=== PATIENT | male | born 1965 | race African-American/Black ===

== ENCOUNTER 2016-07-31 12:39 | Emergency (ER) | payer OTHER ==
[~2016-07-31] VITALS: Ht 180.3 cm; Wt 86.4 kg
[2016-07-31 12:45] VITALS: TEMP 36.8; Ht 180.3 cm; Wt 86.4 kg
[2016-07-31 13:25] VITALS: O2SAT 99
[2016-07-31 13:33] LABS: BASO % 0.3 %; BASO ABS # 0.02 K/uL (0-0.2); COMPLETE YES; EOS % 0.6 %; HEMATOCRIT 42.5 % (42-52); LYMPH % 24.9 %; MEAN CELL VOLUME 80.6 fL (80-100); MEAN CORPUSCULAR HEMOGLOBIN 27.3 pg (25-34); MEAN CORPUSCULAR HGB CONC 33.9 g/dl (32-36); MEAN PLATELET VOLUME 12.1 fL (7.4-10.4); MONO % 7.3 %; NEUT % 66.9 %; PLATELET COUNT 175 K/uL (130-400); RED BLOOD COUNT 5.27 M/uL (4.7-6.1); WHITE BLOOD COUNT 6.42 K/uL (4.8-10.8)
[2016-07-31 13:40] LABS: BUN/CREATININE RATIO 10.5 (10-20); C-REACTIVE PROTEIN 1.04 mg/dl (0-0.29); CALCIUM 9.1 mg/dl (8.5-10.1); CREATININE 1.1 mg/dl (0.60-1.40); POTASSIUM 3.6 mmol/L (3.5-5.1)
[2016-07-31 13:41] LABS: PROTHROMBIN TIME (PATIENT) 10.3 SECONDS (9.0-12.0)
[2016-07-31 13:55] LABS: POINT OF CARE TROPONIN I 0.01 ng/ml (0-0.045)
[2016-07-31] MEDS ORDERED: OPTIRAY 320 IV PRN (14:00)
--- NOTE | 2016-07-31 15:01 | DIAGNOSTIC IMAGING REPORT ---
CT ANGIOGRAM OF THE CHEST CLINICAL HISTORY: Dyspnea. COMPARISON STUDY: No priors. TECHNIQUE: Following the IV administration of 93 cc of Optiray 320, CT angiogram of the chest was performed from the upper abdomen to the thoracic inlet utilizing the pulmonary embolus protocol. Images are reviewed in the axial, sagittal, and coronal planes. 3-D MIPS images are created and assessed. IV contrast was administered without complication. The examination is modestly degraded by motion artifact. CT DOSE: 515.28 mGycm FINDINGS: Thyroid: Imaged portions of the thyroid gland are normal in size and attenuation. Thoracic aorta: The thoracic aorta is normal in caliber and demonstrates standard 3-vessel arch anatomy. No dissection is seen. Pulmonary vasculature: The pulmonary trunk is normal in caliber. There are no filling defects identified in main, lobar, or segmental pulmonary branches to suggest pulmonary embolus. Heart: The heart is enlarged and there is trace pericardial effusion. Lungs and pleural spaces: There is dependent atelectasis. No airspace consolidation or pleural effusion is identified typical for pneumonia. Mild peribronchial thickening is noted. The trachea and central airways are clear. Mediastinum: There is no mediastinal lymphadenopathy. Selene: Clear. Axillae: There is no axillary lymphadenopathy. Upper abdomen: Fecal retention is noted in the partially imaged colon. A tiny hiatal hernia is identified. There is a calcified granuloma in the right lobe of liver. Skeletal structures: No lytic or blastic bony lesions are seen. IMPRESSION: 1. There is no evidence of pulmonary embolus in the main, lobar, or segmental pulmonary arteries. 2. There is no airspace consolidation or pleural effusion. Mild diffuse peribronchial thickening suggests reactive airway disease. Clinical correlation will be required. 3. Cardiomegaly. Electronically signed by: Huy Thrasher M.D. 07/31/2016 3:00 PM Dictated Date/Time: 07/31/2016 2:55 PM
[2016-07-31] MEDS ORDERED: ALBUT/IPRATROP 3MG/0.5MG NEB 3 ML VIAL INH STA (15:09)
[2016-07-31] MEDS ORDERED: AZIT250T PO (15:49)
[2016-07-31] MEDS ORDERED: AZITHROMYCIN 250 MG TAB PO ONE (16:00)
[2016-07-31] MEDS ORDERED: ALBUTEROL HFA 8 GM INHALER INH ONE (16:00)
[2016-07-31 16:12] VITALS: BP 117/76; PULSE 81; O2SAT 96
--- NOTE | 2016-07-31 16:15 | EMERGENCY ROOM VISIT NOTE ---
History Report prepared by Tia: Ally Montez Under the Supervision of: Dr. Francois Vila M.D. First contact with patient: 13:10 Chief Complaint: SHORTNESS OF BREATH Stated Complaint: SHORTNESS OF BREATH Nursing Triage Summary: Patient arrived via EMS from [facility]. Patient states started experiencing SOB and and states "it feels like someone is sitting on his chest". SOB and pain increases when lying flat. Patient c/o left back discomfort as well. States was told had pericardial fluid in 2012 and was given ibuprophen. Was supposed to f/ u with FMD, did not. States pain feels a lot like it did in 2012. Patient was given 4 ASA in ambulance. Patient on 2L O2 in ambulance. History of Present Illness The patient is a 50 year old male who presents to the Emergency Room via EMS from [facility] with complaints of persistent shortness of breath that began yesterday. He also complains of feeling chest discomfort that felt like something was sitting on his chest. Since his symptoms began, he feels like his symptoms have improved some. He does note worsening of his chest heaviness and shortness of breath when he lays flat. The patient has a history of pericarditis in 2012. His current symptoms feel similar to how he felt at that time. He did not have cold-like symptoms prior to his diagnosis in 2011. The patient did not need to have fluid drained. He was just placed on NSAIDs. He never followed up. Denies fever, cold-like symptoms, leg swelling, recent immobilization, or other complaints. He does not have a history of hypertension or diabetes. There is no family history of heart disease. He is not a smoker. He reports previous heavy use of cocaine but notes that he has not used in 16 years. Source of History: patient Onset: yesterday Position: other (global) Quality: other (shortness of breath) Timing: other (persistent) Modifying Factors (Worsening): other (laying flat) Associated Symptoms: + chest pain (heaviness - feels like something sitting on chest), No fevers Review of Systems See HPI for pertinent positives & negatives. A total of 10 systems reviewed and were otherwise negative. Past Medical & Surgical Medical Problems: (1) Pericarditis Family History No pertinent family history stated. Social History Smoking Status: Former Smoker Housing Status: other ([facility]) Current/Historical Medications Scheduled Azithromycin (Zithromax), 250 MG PO DAILY Allergies Coded Allergies: No Known Allergies (Unverified , 07/31/16) Physical Exam Vital Signs Date Time Temp Pulse Resp B/P Pulse Ox O2 Delivery O2 Flow Rate FiO2 07/31/16 14:59 71 21 123/73 96 Room Air 07/31/16 13:25 99 Room Air 07/31/16 13:09 76 07/31/16 12:45 36.8 80 30 114/75 100 Room Air 07/31/16 12:45 99 Room Air 07/31/16 12:45 100 Room Air Physical Exam Constitutional: Vital signs reviewed. Eyes: Pupils are equal round reactive to light. Conjunctiva are noninjected. ENT: Pharynx is clear without erythema or exudate. Mucous membranes are moist. Neck supple without meningeal signs. Respiratory: Tachypneic. No rales. Clear to auscultation bilaterally. Breath sounds are equal bilaterally. Cardiovascular: Regular rate and rhythm. No rubs or gallops. GI: Soft, nondistended and nontender. Bowel sounds are present. Musculoskeletal: No peripheral edema. No lower extremity tenderness. Integumentary: No cyanosis. Neurological: The patient is awake and alert. No focal deficits. Psychiatric: Normal affect. Medical Decision & Procedures ER Provider Diagnostic Interpretation: CT results as stated below per my review and radiologist interpretation. CT ANGIOGRAM OF THE CHEST CLINICAL HISTORY: Dyspnea. COMPARISON STUDY: No priors. TECHNIQUE: Following the IV administration of 93 cc of Optiray 320, CT angiogram of the chest was performed from the upper abdomen to the thoracic inlet utilizing the pulmonary embolus protocol. Images are reviewed in the axial, sagittal, and coronal planes. 3-D MIPS images are created and assessed. IV contrast was administered without complication. The examination is modestly degraded by motion artifact. CT DOSE: 515.28 mGycm FINDINGS: Thyroid: Imaged portions of the thyroid gland are normal in size and attenuation. Thoracic aorta: The thoracic aorta is normal in caliber and demonstrates standard 3-vessel arch anatomy. No dissection is seen. Pulmonary vasculature: The pulmonary trunk is normal in caliber. There are no filling defects identified in main, lobar, or segmental pulmonary branches to suggest pulmonary embolus. Heart: The heart is enlarged and there is trace pericardial effusion. Lungs and pleural spaces: There is dependent atelectasis. No airspace consolidation or pleural effusion is identified typical for pneumonia. Mild peribronchial thickening is noted. The trachea and central airways are clear. Mediastinum: There is no mediastinal lymphadenopathy. Selene: Clear. Axillae: There is no axillary lymphadenopathy. Upper abdomen: Fecal retention is noted in the partially imaged colon. A tiny hiatal hernia is identified. There is a calcified granuloma in the right lobe of liver. Skeletal structures: No lytic or blastic bony lesions are seen. IMPRESSION: 1. There is no evidence of pulmonary embolus in the main, lobar, or segmental pulmonary arteries. 2. There is no airspace consolidation or pleural effusion. Mild diffuse peribronchial thickening suggests reactive airway disease. Clinical correlation will be required. 3. Cardiomegaly. Electronically signed by: Huy Thrasher M.D. 07/31/2016 3:00 PM Dictated Date/Time: 07/31/2016 2:55 PM Laboratory Results 07/31/16 12:08 Red Blood Count 5.27, Mean Corpuscular Volume 80.6, Mean Corpuscular Hemoglobin 27.3, Mean Corpuscular Hemoglobin Concent 33.9, Mean Platelet Volume 12.1, Neutrophils (%) (Auto) 66.9, Lymphocytes (%) (Auto) 24.9, Monocytes (%) (Auto) 7.3, Eosinophils (%) (Auto) 0.6, Basophils (%) (Auto) 0.3, Neutrophils # (Auto) 4.29, Lymphocytes # (Auto) 1.60, Monocytes # (Auto) 0.47, Eosinophils # (Auto) 0.04, Basophils # (Auto) 0.02 07/31/16 12:08 Test 07/31/16 12:08 07/31/16 13:35 White Blood Count 6.42 K/uL (4.8-10.8) Red Blood Count 5.27 M/uL (4.7-6.1) Hemoglobin 14.4 g/dL (14.0-18.0) Hematocrit 42.5 % (42-52) Mean Corpuscular Volume 80.6 fL (80-100) Mean Corpuscular Hemoglobin 27.3 pg (25-34) Mean Corpuscular Hemoglobin Concent 33.9 g/dl (32-36) Platelet Count 175 K/uL (130-400) Mean Platelet Volume 12.1 fL (7.4-10.4) Neutrophils (%) (Auto) 66.9 % Lymphocytes (%) (Auto) 24.9 % Monocytes (%) (Auto) 7.3 % Eosinophils (%) (Auto) 0.6 % Basophils (%) (Auto) 0.3 % Neutrophils # (Auto) 4.29 K/uL (1.4-6.5) Lymphocytes # (Auto) 1.60 K/uL (1.2-3.4) Monocytes # (Auto) 0.47 K/uL (0.11-0.59) Eosinophils # (Auto) 0.04 K/uL (0-0.5) Basophils # (Auto) 0.02 K/uL (0-0.2) RDW Standard Deviation 38.7 fL (36.4-46.3) RDW Coefficient of Variation 13.3 % (11.5-14.5) Immature Granulocyte % (Auto) 0.0 % Immature Granulocyte # (Auto) 0.00 K/uL (0.00-0.02) Erythrocyte Sedimentation Rate 30 mm/hr (0-14) Prothrombin Time 10.3 SECONDS (9.0-12.0) Prothromb Time International Ratio 1.0 (0.9-1.1) Activated Partial Thromboplast Time 26.2 SECONDS (21.0-31.0) Partial Thromboplastin Ratio 1.0 Anion Gap 8.0 mmol/L (3-11) Est Creatinine Clear Calc Drug Dose 87.4 ml/min Estimated GFR () 91.5 Estimated GFR (Non- 79.0 BUN/Creatinine Ratio 10.5 (10-20) Calcium Level 9.1 mg/dl (8.5-10.1) C-Reactive Protein 1.04 mg/dl (0-0.29) Bedside D-Dimer 336 ng/mlFEU (0-450) Bedside Troponin I 0.010 ng/ml (0-0.045) Laboratory results as reviewed by me. Medications Administered Medications (Trade) Dose Ordered Sig/Herbert Route Start Time Stop Time Status Last Admin Dose Admin Albuterol/ Ipratropium (Duoneb) 3 ml NOW STAT INH 07/31/16 15:09 07/31/16 15:19 DC 07/31/16 15:13 3 ML Albuterol (Ventolin Hfa Inhaler) 2 puffs NOW ONCE INH 07/31/16 16:00 07/31/16 16:01 DC 07/31/16 16:05 2 PUFFS Azithromycin (Zithromax Tab) 500 mg NOW ONCE PO 07/31/16 16:00 07/31/16 16:01 DC 07/31/16 16:05 500 MG ECG Indication: SOB/dyspnea Rate (beats per minute): 81 Rhythm: normal sinus Findings: T-wave inversion (V1), no ectopy, other (no electrical alternans) ED Course 1312: The patient was evaluated in room A3. A complete history and physical exam was performed. 1509: Ordered DuoNeb 3 ml INH. 1512: I reassessed the patient. He was feeling much better. He does not have any chest discomfort or shortness of breath. 1547: I reassessed the patient. His repeat point of care troponin was 0.00. He was asymptomatic and [facility]. I told him that we don't exactly know what is going on with his symptoms and he will need to be followed closely by medical staff. The patient will be discharged. 1600: Ordered Azithromycin 500 mg PO, Albuterol 2 puffs INH. Medical Decision This is a 50-year-old male who presents with shortness of breath and chest discomfort. Differential diagnosis includes pericarditis, myocarditis, pulmonary embolism, pneumonia, bronchitis, acute coronary syndrome. I did perform a limited focused review of portions of the patient's old chart on the electronic medical record. The patient has had no prior visits to this hospital. I did evaluate the patient as noted above. The patient is presenting with shortness of breath and chest discomfort similar to when he had pericarditis in 2011. He does state that he feels worse laying backwards. He has no friction rub on examination. His lungs are clear to auscultation. IV access was established. The patient was placed on a continuous cardiac technician. I did order and personally review the patient's 12-lead EKG and chest x-ray as described above. I did order and review the patient's blood work as noted in the electronic medical record. Troponin 2 are both negative. His troponin went from 0.01 to 0.0. D-dimer is negative. After discussion with the patient I did order a CT of the chest. I did review the images myself as well as the radiology report as described above. There is no evidence of pericardial effusion. No pulmonary embolism. He does have signs of reactive airway disease with peribronchial thickening. I did discuss the test results with the patient. He is feeling much better at this time. He was given a DuoNeb and started on Zithromax. I did reassess the patient. He remains asymptomatic at this time. He has very minimal scattered wheezing on reexamination of his lungs. I did splint him that the cause of his symptoms is unclear at this time. I talked about admitting him to the hospital but the patient was very adamant about [facility] to the [facility]. I did recommend very close follow up with the physician there. He was given a prescription for Zithromax and an albuterol MDI. He was told to return immediately should he have any worsening symptoms. Impression Primary Impression: Dyspnea Additional Impression: Acute chest pain Scribe Attestation The scribe's documentation has been prepared under my direct and personally reviewed by me in its entirety. I confirm that the note above accurately reflects all work, treatment, procedures, and medical decision making performed by me. Departure Information Dispostion Other ([facility]) Prescriptions Azithromycin (Zithromax) 250 Mg Tab 250 MG PO DAILY, #4 TAB Prov: Francois Vila M.D. 07/31/16 Referrals Viraj ANDRADE (PCP) Patient Instructions ED Dyspnea Shortness of Breath, [facility] Additional Instructions You have been examined and treated today on an emergency basis only. This is not a substitute for, or an effort to provide, complete comprehensive medical care. It is impossible to recognize and treat all injuries or illnesses in a single emergency department visit. It is therefore important that you follow up closely with the [facility] physician within the next 24 hours. Return for worsening symptoms or if you develop fever, vomiting, or any other concerning symptoms. Problem Qualifiers Primary Impression: Dyspnea Dyspnea type: unspecified Qualified Codes: R06.00 - Dyspnea, unspecified
== END 2016-07-31 16:14 ==
LOC: C.EDA 12:42
DX: R06.00 Dyspnea, unspecified (principal); R07.9 Chest pain, unspecified; Z86.79 Personal history of other diseases of the circulatory system; Z87.891 Personal history of nicotine dependence

== ENCOUNTER 2016-12-30 00:09 | Emergency (ER) | payer OTHER ==
[~2016-12-30] VITALS: Ht 180.3 cm; Wt 88.8 kg
[~2016-12-30 00:09] MED LIST: AZIT250T PO
[2016-12-30 00:16] VITALS: Ht 180.3 cm; Wt 88.8 kg
[2016-12-30] MEDS ORDERED: SODIUM CHLORIDE 0.9% 1000ML 1,000 ML IV STA (00:36)
[2016-12-30] MEDS ORDERED: KETOROLAC TROMETHAMINE 30 MG/ML VIAL IV STA (00:36)
--- NOTE | 2016-12-30 00:38 | EMERGENCY ROOM VISIT NOTE ---
History Report prepared by Tia: Saul Jamil Under the Supervision of: Dr. Laura Gooden D.O. First contact with patient: 00:20 Chief Complaint: FLU LIKE SX Stated Complaint: COLD,FLEM CAN'T HOLD FOOD,COUGH,HEADACHE History of Present Illness The patient is a 51 year old male who presents to the Emergency Room with complaints of a persistent cough and congestion that began yesterday. His cough is producing some mucous. He is also currently complaining of vomiting after eating meals. He has not been able to keep his food down throughout the day. He denies any abdominal pain or nausea at this time. The patient notes feeling some fatigue throughout the day yesterday as well. 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 A total of 10 systems reviewed and were otherwise negative. Past Medical & Surgical Medical Problems: (1) Pericarditis Family History Patient denies any family medical history Social History Smoking Status: Former Smoker Marital Status: Housing Status: lives with family Occupation Status: employed Current/Historical Medications No Active Prescriptions or Reported Meds Allergies Coded Allergies: No Known Allergies (Unverified , 12/30/16) Physical Exam Vital Signs Date Time Temp Pulse Resp B/P (MAP) Pulse Ox O2 Delivery O2 Flow Rate FiO2 12/30/16 02:26 36.5 63 123/76 95 12/30/16 01:25 61 12/30/16 00:16 36.7 75 18 116/79 96 Room Air Physical Exam HEENT: Head - normocephalic and atraumatic Pupils are equal, round, and reactive to light. Extraocular eye muscles are intact, and sclera are anicteric. Nose - moist nasal mucosa without discharge. Mouth - moist buccal mucosa. Oropharynx is nonerythematous and there is no tonsillar exudate or edema noted. Neck: Supple; no JVD, nuchal rigidity, cervical lymphadenopathy, or auscultated bruits. Heart: Regular rate and rhythm. There is a normal S1 and S2 with no murmurs, clicks, or gallops appreciated. Lungs: Clear to auscultation bilaterally with no wheezes, rales, or rhonchi. Abdomen: Soft, nondistended, with good bowel sounds. There are no or hepatosplenomegaly. There is a very small abdominal wall hernia above the umbilicus. There is no guarding, rigidity, or rebound noted. Extremities: No evidence of cyanosis, clubbing, or edema. There are easily palpable peripheral pulses. Skin: warm and dry with good turgor and no rashes. Medical Decision & Procedures ER Provider Diagnostic Interpretation: Radiology results as stated below per my review and the radiologist's interpretation: TWO VIEW CHEST CLINICAL HISTORY: Cough. FINDINGS: PA and lateral chest radiographs are correlated with chest CT dated 07/31/2016. The cardiomediastinal silhouette is unremarkable. The lungs and pleural spaces are clear. There is no pneumothorax. The bony thorax appears intact. IMPRESSION: No active disease in the chest. Electronically signed by: Huy Thrasher M.D. 12/30/2016 1:42 AM Dictated Date/Time: 12/30/2016 1:41 AM Laboratory Results 12/30/16 00:55 Red Blood Count 5.29, Mean Corpuscular Volume 80.3, Mean Corpuscular Hemoglobin 27.0, Mean Corpuscular Hemoglobin Concent 33.6, Mean Platelet Volume 10.7, Neutrophils (%) (Auto) 48.4, Lymphocytes (%) (Auto) 39.1, Monocytes (%) (Auto) 9.1, Eosinophils (%) (Auto) 3.0, Basophils (%) (Auto) 0.2, Neutrophils # (Auto) 2.44, Lymphocytes # (Auto) 1.97, Monocytes # (Auto) 0.46, Eosinophils # (Auto) 0.15, Basophils # (Auto) 0.01 12/30/16 00:55 Test 12/30/16 00:50 12/30/16 00:55 Urine Color DK YELLOW Urine Appearance CLEAR (CLEAR) Urine pH 5.5 (4.5-7.5) Urine Specific [place] 1.036 (1.000-1.030) Urine Protein NEG (NEG) Urine Glucose (UA) NEG (NEG) Urine Ketones TRACE (NEG) Urine Occult Blood NEG (NEG) Urine Nitrite NEG (NEG) Urine Bilirubin NEG (NEG) Urine Urobilinogen NEG (NEG) Urine Leukocyte Esterase NEG (NEG) White Blood Count 5.04 K/uL (4.8-10.8) Red Blood Count 5.29 M/uL (4.7-6.1) Hemoglobin 14.3 g/dL (14.0-18.0) Hematocrit 42.5 % (42-52) Mean Corpuscular Volume 80.3 fL (80-100) Mean Corpuscular Hemoglobin 27.0 pg (25-34) Mean Corpuscular Hemoglobin Concent 33.6 g/dl (32-36) Platelet Count 162 K/uL (130-400) Mean Platelet Volume 10.7 fL (7.4-10.4) Neutrophils (%) (Auto) 48.4 % Lymphocytes (%) (Auto) 39.1 % Monocytes (%) (Auto) 9.1 % Eosinophils (%) (Auto) 3.0 % Basophils (%) (Auto) 0.2 % Neutrophils # (Auto) 2.44 K/uL (1.4-6.5) Lymphocytes # (Auto) 1.97 K/uL (1.2-3.4) Monocytes # (Auto) 0.46 K/uL (0.11-0.59) Eosinophils # (Auto) 0.15 K/uL (0-0.5) Basophils # (Auto) 0.01 K/uL (0-0.2) RDW Standard Deviation 38.3 fL (36.4-46.3) RDW Coefficient of Variation 13.1 % (11.5-14.5) Immature Granulocyte % (Auto) 0.2 % Immature Granulocyte # (Auto) 0.01 K/uL (0.00-0.02) Anion Gap 4.0 mmol/L (3-11) Est Creatinine Clear Calc Drug Dose 86.5 ml/min Estimated GFR () 90.9 Estimated GFR (Non- 78.4 BUN/Creatinine Ratio 14.8 (10-20) Calcium Level 8.9 mg/dl (8.5-10.1) Total Bilirubin 0.6 mg/dl (0.2-1) Direct Bilirubin 0.1 mg/dl (0-0.2) Aspartate Amino Transf (AST/SGOT) 31 U/L (15-37) Alanine Aminotransferase (ALT/SGPT) 36 U/L (12-78) Alkaline Phosphatase 62 U/L (45-117) Total Protein 7.5 gm/dl (6.4-8.2) Albumin 3.4 gm/dl (3.4-5.0) Laboratory results per my review. Medications Administered Medications (Trade) Dose Ordered Sig/Herbert Route Start Time Stop Time Status Last Admin Dose Admin Sodium Chloride 1,000 ml @ 999 mls/hr Q1H1M STAT IV 12/30/16 00:36 12/30/16 01:36 DC 12/30/16 01:04 999 MLS/HR Ketorolac Tromethamine (Toradol Inj) 30 mg NOW STAT IV 12/30/16 00:36 12/30/16 00:41 DC 12/30/16 01:04 30 MG Procedure Medications Ordered: Sodium Chloride, Toradol. ED Course 0026: Past medical records reviewed. The patient was evaluated in room B5. A complete history and physical exam was performed. An IV lock was initiated and labs were drawn as above. 0036: Ordered Toradol 30 mg IV, Sodium Chloride 1000 mL @ 999 mL/hr IV. Patient had a chest x-ray as described above. 0200: I checked on the patient at this time. He was sleeping in bed. I woke the patient to discuss his results and treatment plan. The patient was in agreement and is ready to be discharged home. Medical Decision The patient is a 51 year old male who presents to the Emergency Department for flue-like symptoms. Differential Diagnosis includes; Viral illness, pneumonia, dehydration, and electrolyte abnormality. Laboratory Results were reviewed and show; No leukocytosis, normal hemoglobin and hematocrit, normal renal function and glucose, normal LFTs. I attest that I have personally reviewed the patient's current medication list. The patient is not currently taking any medications. Patient was found to have normal blood pressure on screening and does not require follow-up. The patient had chest x-ray which revealed no evidence of a pneumonia. He is not a smoker. He may have an acute viral bronchitis but does not require antibiotics. Laboratory studies revealed only mild dehydration with slight ketonuria. Patient is feeling much better after receiving IV analgesia and IV fluids. Impression Primary Impression: Body aches Additional Impression: Cough Scribe Attestation The scribe's documentation has been prepared under my direction and personally reviewed by me in its entirety. I confirm that the note above accurately reflects all work, treatment, procedures, and medical decision making performed by me. Departure Information Dispostion Home / Self-Care Prescriptions No Active Prescriptions or Reported Meds Referrals No Doctor, Assigned (PCP) Forms HOME CARE DOCUMENTATION FORM, IMPORTANT VISIT INFORMATION Patient Instructions My [facility] Additional Instructions Rest. Take plenty of clear liquids Ibuprofen for body aches Problem Qualifiers
[2016-12-30 01:13] LABS: BASO % 0.2 %; BASO ABS # 0.01 K/uL (0-0.2); COMPLETE YES; HEMATOCRIT 42.5 % (42-52); IG% 0.2 %; LYMPH % 39.1 %; LYMPH ABS # 1.97 K/uL (1.2-3.4); MEAN CELL VOLUME 80.3 fL (80-100); MEAN CORPUSCULAR HGB CONC 33.6 g/dl (32-36); MEAN PLATELET VOLUME 10.7 fL (7.4-10.4); MONO % 9.1 %; NEUT % 48.4 %; PLATELET COUNT 162 K/uL (130-400); RED BLOOD COUNT 5.29 M/uL (4.7-6.1); WHITE BLOOD COUNT 5.04 K/uL (4.8-10.8)
[2016-12-30 01:14] LABS: URINE APPEARANCE CLEAR (CLEAR); URINE BILIRUBIN NEG (NEG); URINE COLOR DK YELLOW; URINE NITRITE NEG (NEG); URINE PH 5.5 (4.5-7.5); URINE SPECIFIC GRAVITY 1.036 (1.000-1.030); UROBILINOGEN NEG (NEG)
[2016-12-30 01:21] LABS: MANUAL MICROSCOPIC REQUIRED? NO; REVIEW REQ? NO
[2016-12-30 01:30] LABS: BUN/CREATININE RATIO 14.8 (10-20); CALCIUM 8.9 mg/dl (8.5-10.1); CREATININE 1.1 mg/dl (0.60-1.40); POTASSIUM 3.8 mmol/L (3.5-5.1)
--- NOTE | 2016-12-30 01:43 | DIAGNOSTIC IMAGING REPORT ---
TWO VIEW CHEST CLINICAL HISTORY: Cough. FINDINGS: PA and lateral chest radiographs are correlated with chest CT dated 07/31/2016. The cardiomediastinal silhouette is unremarkable. The lungs and pleural spaces are clear. There is no pneumothorax. The bony thorax appears intact. IMPRESSION: No active disease in the chest. Electronically signed by: Huy Thrasher M.D. 12/30/2016 1:42 AM Dictated Date/Time: 12/30/2016 1:41 AM
[2016-12-30 02:26] VITALS: BP 123/76; PULSE 63; TEMP 36.5; O2SAT 95
== END 2016-12-30 02:28 | disposition home or self-care (01) ==
LOC: C.EDB 00:10
DX: R05 Cough (principal); R69 Illness, unspecified; Z87.891 Personal history of nicotine dependence

== ENCOUNTER 2017-10-01 07:07 | Emergency (ER) | payer OTHER ==
[2017-10-01 07:12] VITALS: TEMP 36.7
--- NOTE | 2017-10-01 07:48 | EMERGENCY ROOM VISIT NOTE ---
History Report prepared by Tia: Cayla Keys Under the Supervision of: iMriam CoughlinO. First contact with patient: 07:14 Chief Complaint: FLU LIKE SX Stated Complaint: COUGH,CONGESTION,CHEST HURT,FLU LIKE SYMPTOMS History of Present Illness The patient is a 51 year old male who presents to the Emergency Room with complaints of constant flu-like symptoms for the past week. He notes a productive cough with yellow sputum. He also reports rhinorrhea and sinus congestion. He has chest pain that occurs with coughing. He denies any chest pain at rest. He has been taking Tylenol for his symptoms without any relief. The patient denies any fevers, wheezing, and pain in his legs. He does report some swelling to his lower extremities for the past few months. 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 Source of History: patient Onset: 1 week ago Position: other (global) Quality: other (flu-like) Timing: constant Modifying Factors (Worsening): other (coughing) Associated Symptoms: + cough, + chest pain, No fevers Note: Pt notes swelling in lower extremities. Review of Systems See HPI for pertinent positives & negatives. A total of 10 systems reviewed and were otherwise negative. Past Medical & Surgical Medical Problems: (1) Pericarditis Surgical Problems: (1) H/O wisdom tooth extraction Family History Cancer Diabetes mellitus Hypertension Social History Smoking Status: Never Smoker Smokeless Tobacco Use: No Alcohol Use: none Drug Use: none Marital Status: Housing Status: lives with family Occupation Status: employed Current/Historical Medications Scheduled Amoxicillin & Pot Clavulanate (Augmentin 875-125 mg), 875 MG PO BID Allergies Coded Allergies: No Known Allergies (Unverified , 10/01/17) Physical Exam Vital Signs Date Time Temp Pulse Resp B/P (MAP) Pulse Ox O2 Delivery O2 Flow Rate FiO2 10/01/17 08:27 65 16 121/84 98 10/01/17 07:12 36.7 78 20 144/93 96 Room Air Physical Exam GENERAL: Patient is awake, alert, and in no acute distress. Patient is resting comfortably and showing no signs of anxiety EYES: The conjunctivae are clear. The pupils are round and reactive. EARS, NOSE, MOUTH AND THROAT: TMs clear bilaterally. The nose is without any evidence of any deformity. Small amount of clear rhinorrhea noted bilaterally. Mucous membranes are moist tongue is midline. Posterior oropharynx is clear. NECK: The neck is nontender and supple. RESPIRATORY: Normal respiratory effort is noted there is no evidence of wheezing rhonchi or rales CARDIOVASCULAR: Regular rate and rhythm noted there no murmurs rubs or gallops normal S1 normal S2 GASTROINTESTINAL: The abdomen is soft. Bowel sounds are present in all quadrants. Abdomen is nontender MUSCULOSKELETAL/EXTREMITIES: There is no evidence of gross deformity full range of motion is noted in the hips and shoulders SKIN: There is trace pedal edema bilaterally. There is no obvious evidence of any rash. There are no petechiae, pallor or cyanosis noted. NEUROLOGIC: Patient is awake alert and oriented x3 strength is symmetric patellar reflexes are 2+ bilaterally Medical Decision & Procedures ER Provider Diagnostic Interpretation: Radiology results as stated below per my review and radiologist interpretation: CHEST 2 VIEWS ROUTINE CLINICAL HISTORY: 51 years-old Male presenting with cough. TECHNIQUE: PA and lateral views of the chest were obtained. COMPARISON: 05/07/2017. FINDINGS: Cardiomediastinal silhouette normal. Lungs and pleural spaces clear. Osseous structures normal. Upper abdomen normal. IMPRESSION: 1. No acute cardiopulmonary disease. Electronically signed by: Cristofer Love M.D. 10/01/2017 7:51 AM Dictated Date/Time: 10/01/2017 7:50 AM Laboratory Results Test 10/01/17 07:25 Influenza Type A Antigen Neg for Influ A (NEG) Influenza Type B Antigen Neg for Influ B (NEG) Laboratory results per my review. ECG Per My Interpretation Indication: chest pain Rate (beats per minute): 70 Rhythm: normal sinus Findings: no acute ischemic change, no ectopy Comparison ECG Date: 05/07/17 Change: no significant change ED Course 0714: The patient was evaluated in room A2. A complete history and physical examination were performed. 0817: I reassessed the patient at this time. He is feeling better and resting comfortably. I discussed the results and treatment plan with the patient. I answered all pertaining questions that he had. He expressed understanding and verbalized agreement. The patient will be discharged home. Medical Decision Differential diagnosis: Etiologies such as infections, reactive airway disease, pneumonia, pneumothorax , COPD, CHF, cardiac ischemia, pulmonary embolism, musculoskeletal, gastrointestinal, as well as others were entertained. Nursing notes reviewed. The patient is a 51-year-old male who presented to the emergency department for an evaluation of congestion and cough. The patient also complained of chest pain which was worsened with cough. His chest pain does not sound cardiac in nature. It is not exertional. It is not constant. It was not reproducible other than coughing. The patient had a chest x-ray which revealed no acute disease. Certainly his history and physical exam appear to be more consistent with sinus congestion and possible sinusitis. Unfortunately patient does not have a primary care physician at this time. He was treating himself with over- the-counter medication. I was concerned this could become worse. He was started on a course of antibiotic in the emergency department. He was encouraged to try an [id number] nasal spray such as Flonase. He was also encouraged to continue using Motrin and Tylenol as directed for pain. I also recommended that he try to get an appointment with a primary care physician for recheck of his blood pressure as well as this current medical condition. He was also encouraged to return to the emergency department immediately if symptoms change worsen or the need arises. Medication Reconcilliation Current Medication List: was personally reviewed by me Blood Pressure Screening Patient's blood pressure: Elevated blood pressure Blood pressure disposition: Referred to PCP Impression Primary Impression: Sinusitis Scribe Attestation The scribe's documentation has been prepared under my direction and personally reviewed by me in its entirety. I confirm that the note above accurately reflects all work, treatment, procedures, and medical decision making performed by me. Departure Information Dispostion Home / Self-Care Prescriptions Amoxicillin & Pot Clavulanate (Augmentin 875-125 mg) 1 Tab Tab 875 MG PO BID for 7 Days, #14 TAB Prov: Baudilio Thornton, DO 10/01/17 Referrals No Doctor, Assigned (PCP) Forms HOME CARE DOCUMENTATION FORM, IMPORTANT VISIT INFORMATION Patient Instructions My [facility], Sinusitis Acute Additional Instructions Call to schedule a follow-up appointment with a family doctor. Continue using Motrin and Tylenol as directed for pain. Consider using an [id number] nasal spray such as Flonase for congestion. Have your blood pressure rechecked with your family doctor it was elevated today in the emergency department but this could be situational. Return to the emergency department if symptoms change worsen or the need arises. Problem Qualifiers Primary Impression: Sinusitis Sinusitis location: unspecified location Chronicity: acute Recurrence: not specified as recurrent Qualified Codes: J01.90 - Acute sinusitis, unspecified
--- NOTE | 2017-10-01 07:52 | DIAGNOSTIC IMAGING REPORT ---
CHEST 2 VIEWS ROUTINE CLINICAL HISTORY: 51 years-old Male presenting with cough. TECHNIQUE: PA and lateral views of the chest were obtained. COMPARISON: 05/07/2017. FINDINGS: Cardiomediastinal silhouette normal. Lungs and pleural spaces clear. Osseous structures normal. Upper abdomen normal. IMPRESSION: 1. No acute cardiopulmonary disease. Electronically signed by: Cristofer Love M.D. 10/01/2017 7:51 AM Dictated Date/Time: 10/01/2017 7:50 AM
[2017-10-01 08:02] LABS: INFLUENZA B ANTIGEN Neg for Influ B (NEG)
[2017-10-01] MEDS ORDERED: ONDA4TAB10 SL (08:05)
[2017-10-01] MEDS ORDERED: AMOX875T PO (08:06)
[2017-10-01 08:27] VITALS: BP 121/84; PULSE 65; O2SAT 98
== END 2017-10-01 08:28 | disposition home or self-care (01) ==
LOC: C.EDB 07:07 → C.EDA 08:28
DX: J01.90 Acute sinusitis, unspecified (principal); Z83.3 Family history of diabetes mellitus